=== PATIENT | male | born 1955 | race Caucasian/White ===

== ENCOUNTER 2021-06-04 08:51 | Outpatient (CLI) | payer MEDICARE, BC | END 2021-06-04 08:52 | disposition home or self-care (01) | LOC: SCSMRI 08:51 | PROVIDERS: ATTEND Orthopaedic Surgery | DX: M75.111 Incomplete rotator cuff tear or rupture of right shoulder, not specified as traumatic (principal); S46.111A Strain of muscle, fascia and tendon of long head of biceps, right arm, initial encounter; S43.431A Superior glenoid labrum lesion of right shoulder, initial encounter; M19.011 Primary osteoarthritis, right shoulder ==

== ENCOUNTER 2021-07-28 09:53 | Outpatient (CLI) | payer MEDICARE, BC ==
[2021-07-28 10:45] LABS: #Eosinphils 0.1 10x3/uL (0.0-0.5); #Monocytes 0.8 10x3/uL (0.0-1.1); #Neutrophils 6.1 10x3/uL (1.5-8.4); %Basophils 0.4 % (0.0-2.0); %Eosinophils 0.9 % (0.0-6.0); %Lymphocytes 17.8 % (18.0-47.0); %Monocytes 8.8 % (0.0-10.0); %Neutrophils 71.5 % (40.0-75.0); Mean Corpuscular HGB CONC 33.6 g/dL (32.0-36.0); Mean Corpuscular Hemoglobin 31.3 pg (27.0-33.0); Mean Corpuscular Volume 93.1 fl (81.2-95.1); Mean Platelet Volume 9.5 fl (7.4-10.4); Platelet Count 333 10x3/uL (150-450); White Blood Cell (WBC) Count 8.5 10x3/uL (3.5-10.5)
[2021-07-28 11:01] LABS: Anion Gap 14 mmol/L (10-20); BUN (Urea Nitrogen) 21 mg/dL (8.4-25.7); Calc. Creatinine Clearance 0 mL/min (70-130); Carbon Dioxide 22 mmol/L (23-31); Chloride 105 mmol/L (98-107); Glucose 94 mg/dL (80-115); Potassium 4.8 mmol/L (3.5-5.1); Sodium 136 mmol/L (136-145)
[2021-07-28 21:58] LABS: SARS-CoV-2 PCR by NAA Not Detected (NotDetected)
== END 2021-07-28 09:54 | disposition home or self-care (01) ==
LOC: LABBT 09:53
PROVIDERS: ATTEND Orthopaedic Surgery
DX: Z01.818 Encounter for other preprocedural examination (principal); M75.101 Unspecified rotator cuff tear or rupture of right shoulder, not specified as traumatic; Z20.822 Contact with and (suspected) exposure to COVID-19
CPT/HCPCS: 71046; 80048; 85025; 93005; U0003; U0005; 93010

== ENCOUNTER 2021-07-31 07:35 | Day surgery (SDC) | payer MEDICARE, BC ==
[2021-07-30 12:36] VITALS: BMI 28.7
[2021-07-31] MEDS ORDERED: ceFAZolin 2 GM/DEX 5% 100 ML BAG ONE (08:10)
[2021-07-31] MEDS ORDERED: Midazolam HCl 2 mg/2 ml Vial ONE (08:24)
[2021-07-31] MEDS ORDERED: Fentanyl 100 MCG/2 ML VIAL ONE ×2 (08:24→10:08)
[2021-07-31] MEDS ORDERED: Lidocaine 1% (PF) 30 ML VIAL ONE (08:25)
[2021-07-31] MEDS ORDERED: Vancomycin 1.5 GRAM/300 ML BAG 1.5 GM in Premix Bag 1 BAG IVPB SCH (08:30)
[2021-07-31] MEDS ORDERED: Ropivacaine 2% HCl/PF (20 MG/10 ML VIAL) ONE (08:52)
[2021-07-31] MEDS ORDERED: Ropivacaine 0.5% HCl/PF (150 MG/30 ML VIAL) ONE (08:52)
[2021-07-31] MEDS ORDERED: traMADol HCl 50 MG TAB PO PRN ×2 (09:00)
[2021-07-31] MEDS ORDERED: HYDROcodone/Acetaminophen 5/325 mg Tablet PO PRN ×2 (09:00)
[2021-07-31] MEDS ORDERED: Ropivacaine 0.2% 550 ML 550 ML NERVE BLCK SCH (09:00)
[2021-07-31] MEDS ORDERED: Ondansetron PF 4 MG/2 ML Vial IVP PRN (09:00)
[2021-07-31] MEDS ORDERED: Zolpidem Tartrate 5 MG TAB PO PRN (09:00)
[2021-07-31] MEDS ORDERED: Promethazine HCl 25 MG/ML VIAL IM PRN (09:00)
[2021-07-31] MEDS ORDERED: Dexamethasone 20 MG/5 ML VIAL ONE (10:20)
[2021-07-31] MEDS ORDERED: ePHEDrine 50 MG/ML VIAL ONE (10:20)
[2021-07-31] MEDS ORDERED: Rocuronium Bromide 10 MG/ML (10ML VIAL) ONE (10:20)
[2021-07-31] MEDS ORDERED: PHENYLEPHRINE-NS 100 MCG/ML 10 ML SYRINGE ONE ×2 (10:20→11:20)
[2021-07-31] MEDS ORDERED: PROPOFOL 200 MG/20 ML VIAL ONE (10:20)
[2021-07-31] MEDS ORDERED: Lidocaine 1% w/Epinephrine 1:100K 20 ML VIAL ONE (10:48)
[2021-07-31] MEDS ORDERED: EPINEPHrine 1 MG/ML AMP ONE (10:49)
[2021-07-31] MEDS ORDERED: Bupivacaine PF 0.5% 30 ML VIAL ONE (10:49)
[2021-07-31] MEDS ORDERED: Albumin 5% 500 ML ONE (11:20)
== END 2021-07-31 14:05 | disposition home or self-care (01) ==
LOC: SDC 07:35
PROVIDERS: ATTEND Orthopaedic Surgery
PROC: 0RNJ4ZZ Release Right Shoulder Joint, Percutaneous Endoscopic Approach (ICD-10-PCS; principal; 2021-07-31)
PROC: 0LS30ZZ Reposition Right Upper Arm Tendon, Open Approach (ICD-10-PCS; 2021-07-31)
DX: M67.813 Other specified disorders of tendon, right shoulder (principal); M75.111 Incomplete rotator cuff tear or rupture of right shoulder, not specified as traumatic; M19.011 Primary osteoarthritis, right shoulder; M75.41 Impingement syndrome of right shoulder; I10 Essential (primary) hypertension; G47.30 Sleep apnea, unspecified; F17.220 Nicotine dependence, chewing tobacco, uncomplicated; G47.00 Insomnia, unspecified; N40.0 Benign prostatic hyperplasia without lower urinary tract symptoms; Z79.890 Hormone replacement therapy; Z79.899 Other long term (current) drug therapy; Z90.49 Acquired absence of other specified parts of digestive tract; Z98.890 Other specified postprocedural states
CPT/HCPCS: 23430; 29823; A4306; C1713; P9045; J0171; J1100; J2001; J2250; J2704; J2795; J3010; J3370; J3490; S0020

== ENCOUNTER 2022-09-30 13:45 | Outpatient (CLI) | payer MEDICARE, BC | END 2022-09-30 13:46 | disposition home or self-care (01) | LOC: LABBT 13:45 | PROVIDERS: ATTEND Orthopaedic Surgery | DX: Z01.818 Encounter for other preprocedural examination (principal); M17.12 Unilateral primary osteoarthritis, left knee | CPT/HCPCS: 71046; 93005; 93010 ==

== ENCOUNTER 2022-10-04 05:32 | Observation (INO) | payer MEDICARE, BC ==
[2022-09-30 15:10] LABS: Bilirubin Neg (Negative); Blood, Urine Negative (Negative); Clarity Clear (Clear); Glucose, Urine (Dipstick) Normal (Negative); Ketone, Urine 5 mg/dL (Negative); Leukocyte 25 (Negative); Nitrite Negative (Negative); Protein, Urine (Dipstick) Negative (Neg-Trace); Urobilinogen Normal mg/dL (Less than 2)
[2022-09-30 15:14] LABS: #Monocytes 0.7 10x3/uL (0.0-1.1); #Neutrophils 4.8 10x3/uL (1.5-8.4); %Basophils 0.6 % (0.0-2.0); %Eosinophils 0.4 % (0.0-6.0); %Lymphocytes 20.5 % (18.0-47.0); %Neutrophils 68.2 % (40.0-75.0); Mean Corpuscular HGB CONC 34.5 g/dL (32.0-36.0); Mean Corpuscular Volume 95.6 fl (81.2-95.1); Mean Platelet Volume 9.5 fl (7.4-10.4); Platelet Count 334 10x3/uL (150-450); RBC Distribution Width 14.1 % (11.5-14.5); Red Blood Cell (RBC) Count 4.55 10x6/uL (4.32-5.72); White Blood Cell (WBC) Count 7.1 10x3/uL (3.5-10.5)
[2022-09-30 15:27] LABS: Prothrombin Time 10.6 sec (9.5-12.1)
[2022-09-30 15:32] LABS: Anion Gap 17 mmol/L (10-20); BUN (Urea Nitrogen) 18 mg/dL (8.4-25.7); Calc. Creatinine Clearance 0 mL/min (70-130); Calcium 9.6 mg/dL (7.8-10.44); Carbon Dioxide 25 mmol/L (23-31); Chloride 101 mmol/L (98-107); Estimated GFR 50; Glucose 89 mg/dL (80-115); Potassium 4.8 mmol/L (3.5-5.1); Sodium 138 mmol/L (136-145)
[2022-10-01 12:48] VITALS: BMI 28.1
[2022-10-04] MEDS ORDERED: Tranexamic Acid 1,000 MG/10 ML VIAL ONE ×2 (06:01→09:41)
[2022-10-04] MEDS ORDERED: Sodium Chloride 0.9% 100 ML ONE ×2 (06:01→06:58)
[2022-10-04] MEDS ORDERED: Vancomycin (BATCH) 1.5 GRAM/300 ML BAG ONE (06:01)
[2022-10-04] MEDS ORDERED: Fentanyl 250 MCG/5 ML VIAL ONE (06:13)
[2022-10-04] MEDS ORDERED: Midazolam HCl 2 mg/2 ml Vial ONE ×2 (06:13→06:34)
[2022-10-04] MEDS ORDERED: Bupivacaine PF 0.5% 30 ML VIAL ONE ×2 (06:28→06:34)
[2022-10-04] MEDS ORDERED: EPINEPHrine 1 MG/ML AMP ONE (06:34)
[2022-10-04] MEDS ORDERED: Fentanyl 100 MCG/2 ML VIAL ONE (06:34)
[2022-10-04] MEDS ORDERED: Lidocaine 1% (PF) 30 ML VIAL ONE (06:34)
[2022-10-04] MEDS ORDERED: CEFAZOLIN 2 GM VIAL ONE (06:58)
[2022-10-04] MEDS ORDERED: PHENYLEPHRINE-NS 100 MCG/ML 10 ML SYRINGE ONE (07:16)
[2022-10-04] MEDS ORDERED: ePHEDrine 50 MG/ML VIAL ONE (07:16)
[2022-10-04] MEDS ORDERED: Ondansetron PF 4 MG/2 ML Vial ONE (07:16)
[2022-10-04] MEDS ORDERED: Lidocaine 1% PF 5 ML VIAL ONE (07:16)
[2022-10-04] MEDS ORDERED: PROPOFOL 200 MG/20 ML VIAL ONE (07:16)
[2022-10-04] MEDS ORDERED: Dexamethasone 20 MG/5 ML VIAL ONE (07:16)
[2022-10-04 07:19] LABS: SARS-CoV-2 NAA Rapid Test Not Detected (NotDetected)
[2022-10-04] MEDS ORDERED: Fentanyl 100 MCG/2 ML VIAL SLOW IVP PRN (07:33)
[2022-10-04] MEDS ORDERED: Phenylephrine 10 MG/ML VIAL ONE (07:34)
[2022-10-04] MEDS ORDERED: Ondansetron PF 4 MG/2 ML Vial IVP PRN ×2 (07:45→09:12)
[2022-10-04] MEDS ORDERED: Promethazine HCl 25 MG/ML VIAL IM PRN ×2 (07:45→09:12)
[2022-10-04] MEDS ORDERED: HYDROcodone/Acetaminophen 10/325 mg Tablet PO PRN (07:45)
[2022-10-04] MEDS ORDERED: Ropivacaine 0.2% 550 ML 550 ML NERVE BLCK SCH (07:45)
[2022-10-04] MEDS ORDERED: Zolpidem Tartrate 5 MG TAB PO PRN ×2 (07:45→09:12)
[2022-10-04] MEDS ORDERED: traMADol HCl 50 MG TAB PO PRN ×2 (07:45)
[2022-10-04] MEDS ORDERED: HYDROmorphone 2 MG/ML VIAL ONE (09:08)
[2022-10-04] MEDS ORDERED: Acetaminophen 325 MG TAB PO PRN (09:12)
[2022-10-04] MEDS ORDERED: diphenhydrAMINE 25 MG CAP PO PRN (09:12)
[2022-10-04] MEDS ORDERED: Docusate 100 MG CAP PO PRN (09:15)
[2022-10-04] MEDS ORDERED: Tranexamic Acid 1,000 MG in Sodium Chloride 0.9% 100 ML IVPB SCH (09:15)
[2022-10-04] MEDS ORDERED: HYDROmorphone 0.5 MG/0.5 ML SYRINGE ONE ×4 (09:31→12:02)
[2022-10-04] MEDS: Sodium Chloride 0.9% 1,000 ML IV SCH ×2 (12:23→20:49)
[2022-10-04] MEDS: Ketorolac Tromethamine 30 MG/ML VIAL IVP SCH ×2 (14:22→22:29)
[2022-10-04] MEDS: CEFAZOLIN 2 GM in Sodium Chloride 0.9% 100 ML IVPB SCH ×2 (14:23→22:28)
[2022-10-04] MEDS: HYDROcodone/Acetaminophen 10/325 mg Tablet PO PRN (16:23)
[2022-10-04] MEDS ORDERED: Vancomycin HCl 1.5 GM in Sodium Chloride 0.9% 250 ML 300 ML IVPB SCH (18:00)
[2022-10-04] MEDS: Aspirin 81 mg Enteric Coated Tablet PO SCH (20:50)
[2022-10-04] MEDS: Ferrous Gluconate 324 MG TAB PO SCH (20:50)
[2022-10-04] MEDS: Senokot S 8.6-50 MG TAB PO SCH (20:50)
[2022-10-04] MEDS ORDERED: Tamsulosin HCl 0.4 MG CAP PO SCH (21:00)
[2022-10-04] MEDS ORDERED: Finasteride 5 MG TAB PO SCH (21:00)
[2022-10-04] MEDS ORDERED: Zolpidem Tartrate 5 MG TAB PO SCH (21:00)
[2022-10-05] MEDS: HYDROcodone/Acetaminophen 10/325 mg Tablet PO PRN ×2 (05:36→10:09)
[2022-10-05] MEDS: Ketorolac Tromethamine 30 MG/ML VIAL IVP SCH ×2 (05:38→14:52)
[2022-10-05] MEDS: Sodium Chloride 0.9% 1,000 ML IV SCH ×2 (05:49→14:59)
[2022-10-05 06:13] LABS: Hemoglobin 12.9 g/dL (14.0-18.0); Mean Corpuscular HGB CONC 32.4 g/dL (32.0-36.0); Mean Corpuscular Hemoglobin 33.4 pg (27.0-31.0); Mean Platelet Volume 7.5 fL (7.4-10.4); Platelet Count 243 10x3/uL (130-400); RBC Distribution Width 13.1 % (11.5-14.5); Red Blood Cell (RBC) Count 3.85 mill/uL (4.70-6.10); White Blood Cell (WBC) Count 13.8 10x3/uL (4.8-10.8)
[2022-10-05] MEDS: Aspirin 81 mg Enteric Coated Tablet PO SCH (08:53)
[2022-10-05] MEDS: Ferrous Gluconate 324 MG TAB PO SCH (08:53)
[2022-10-05] MEDS: Senokot S 8.6-50 MG TAB PO SCH (08:54)
[2022-10-05] MEDS ORDERED: Acyclovir 200 mg Capsule PO SCH (09:00)
[2022-10-05] MEDS ORDERED: Cholecalciferol 1,000 UNITS (25 MCG) TAB PO SCH (09:00)
[2022-10-05] MEDS ORDERED: Multivitamin W/ Minerals 1 TAB PO SCH (09:00)
[2022-10-05] MEDS ORDERED: Losartan 25 MG TAB PO SCH (09:00)
[2022-10-05 11:57] VITALS: BP 179/96; TEMP 98.5
== END 2022-10-05 13:52 | disposition home or self-care (01) ==
LOC: SDC 05:32 → SURG B 13:07
PROVIDERS: ADMIT Orthopaedic Surgery; ATTEND Orthopaedic Surgery
PROC: 0SRD0J9 Replacement of Left Knee Joint with Synthetic Substitute, Cemented, Open Approach (ICD-10-PCS; principal; 2022-10-04)
DX: M17.12 Unilateral primary osteoarthritis, left knee (principal); Z79.899 Other long term (current) drug therapy; Z20.822 Contact with and (suspected) exposure to COVID-19
CPT/HCPCS: 20985; 27447; 80048; 81003; 85025; 85027; 85610; 86850; 86900; 86901; 87081; 97110 ×2; 97116 ×2; 97530; A4306; C1713; C1776; J3370; U0002; 36415; 96365; 96366; 96367; 96375; 96376; G0378; J0171; J1100; J1170; J1885; J2001; J2250; J2370; J2405; J2704; J2795; J3010; J3490; J7050; S0020

== ENCOUNTER 2024-10-24 06:32 | Day surgery (SDC) | payer MEDICARE, BC ==
[2024-10-22 13:13] VITALS: BMI 27.9
[2024-10-24] MEDS ORDERED: PROPOFOL 20 ML ONE (07:54)
[2024-10-24] MEDS ORDERED: Lidocaine 1% PF 5 ML VIAL ONE (07:54)
[2024-10-24] MEDS ORDERED: Rocuronium Bromide 10 MG/ML (10ML VIAL) ONE (07:54)
[2024-10-24] MEDS ORDERED: fentaNYL PF 100 MCG/2 ML SYRINGE ONE (07:54)
[2024-10-24] MEDS ORDERED: CEFAZOLIN 2 GM VIAL ONE (08:36)
[2024-10-24] MEDS ORDERED: Midazolam HCl 2 mg/2 ml Vial ONE (08:36)
[2024-10-24] MEDS ORDERED: Bupivacaine PF 0.5% 30 ML VIAL ONE (08:50)
[2024-10-24] MEDS ORDERED: EPINEPHrine 1 MG/ML VIAL ONE (08:50)
[2024-10-24] MEDS ORDERED: Midazolam HCl 2 mg/2 ml Vial SLOW IVP SCH (09:15)
[2024-10-24] MEDS ORDERED: Labetalol HCl 100 MG/20 ML VIAL ONE (09:48)
[2024-10-24] MEDS ORDERED: PHENYLEPHRINE-NS 100 MCG/ML 10 ML SYRINGE ONE (09:48)
[2024-10-24] MEDS ORDERED: Dexamethasone 20 MG/5 ML VIAL ONE (09:48)
[2024-10-24] MEDS ORDERED: ePHEDrine Sulfate 50 MG/10 ML VIAL ONE (09:48)
[2024-10-24] MEDS ORDERED: Ondansetron PF 4 MG/2 ML Vial ONE (09:48)
[2024-10-24] MEDS ORDERED: Thrombin 5000 UNITS/5 ML VIAL ONE (10:59)
[2024-10-24] MEDS ORDERED: HYDROcodone/Acetaminophen 10/325 mg Tablet ONE (12:04)
== END 2024-10-24 12:42 | disposition home or self-care (01) ==
LOC: SDC 06:32
PROVIDERS: ATTEND Neurological Surgery
PROC: 01N10ZZ Release Cervical Nerve, Open Approach (ICD-10-PCS; principal; 2024-10-24)
DX: M54.12 Radiculopathy, cervical region (principal); M48.02 Spinal stenosis, cervical region; I10 Essential (primary) hypertension; N40.0 Benign prostatic hyperplasia without lower urinary tract symptoms; Z79.899 Other long term (current) drug therapy; Z88.8 Allergy status to other drugs, medicaments and biological substances; F17.200 Nicotine dependence, unspecified, uncomplicated; E78.00 Pure hypercholesterolemia, unspecified; Z96.652 Presence of left artificial knee joint; Z98.890 Other specified postprocedural states
CPT/HCPCS: 63020; 72020; C1713; J0171; J0665; J1100; J2250; J2405; J2704